=== PATIENT | male | born 1965 | race Hispanic/Latino ===

== ENCOUNTER 2019-06-23 23:31 | Emergency (ER) | payer BC ==
[~2019-06-23 23:31] MED LIST: Iopamidol 370 76% 100 ML VIAL ONE
[2019-06-23] MEDS ORDERED: Adacel (T-DAP) 0.5 ML SYRINGE ONE (23:53)
[2019-06-24] MEDS ORDERED: Sodium Chloride 0.9% 1,000 ML ONE (00:50)
[2019-06-24] MEDS ORDERED: HYDROcodone/Acetaminophen 5/325 mg Tablet ONE (02:24)
[2019-06-24] MEDS ORDERED: Bacitracin 1 PK ONE (02:33)
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
== END 2019-06-24 02:45 | disposition home or self-care (01) ==
LOC: MADERS 23:31
DX: S20.212A Contusion of left front wall of thorax, initial encounter (principal); S00.01XA Abrasion of scalp, initial encounter; S50.312A Abrasion of left elbow, initial encounter; E04.1 Nontoxic single thyroid nodule; Z23 Encounter for immunization; V69.9XXA Occupant (driver) (passenger) of heavy transport vehicle injured in unspecified traffic accident, initial encounter
CPT/HCPCS: 70450; 71250; 72125; 74177; 90471; 90715; 96360; 96361; J7050; Q9967